=== PATIENT | female | born 1965 | race Caucasian/White ===

== ENCOUNTER 2018-01-29 09:16 | Emergency (ER) | payer SELFPAY ==
[2018-01-29] MEDS ORDERED: LEVALBUTEROL 1.25 MG/3 ML NEB ONE (09:47)
--- NOTE | 2018-01-29 10:15 | RAD REPORT ---
EXAM DESCRIPTION: RAD - Chest Pa And Lat (2 Views) - 01/29/2018 10:00 am CLINICAL HISTORY: COUGH Chest pain. COMPARISON: Chest Pa And Lat (2 Views) dated 05/24/2016; CHEST PA AND LAT 2 VIEW dated 03/30/2015 FINDINGS: The lungs are clear. The heart is normal in size. No displaced fractures. IMPRESSION: No acute or concerning finding suspected.
--- NOTE | 2018-01-29 10:55 | EDPHYS ---
Physician Documentation [facility] Name: Mary Cooley Age: 52 yrs Sex: Female : 1965 Arrival Date: 01/29/2018 Time: 09:19 Bed 6 Private MD: Marlon Luo ED Physician Jeremiah Lawson HPI: 01/29 09:34 This 52 yrs old Female presents to ER via Ambulatory with complaints of Flu rn Symptoms. 09:34 The patient or guardian reports cough, flu symptoms, low-grade fever, myalgias. Onset: rn The symptoms/episode began/occurred 3 week(s) ago. Severity of symptoms: At their worst the symptoms were mild, in the emergency department the symptoms are unchanged. Modifying factors: The symptoms are alleviated by nothing, the symptoms are aggravated by nothing. The patient has experienced similar episodes in the past. The patient has been recently seen by a physician:. Reports cough/congestion for 3 weeks, seen by PCP, finished course of steroids and abx last week, reports still coughing, not really productive, + mild sob, still smokes. + myalgias and fatigue, intermittent fever. . 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 - Social history:: Smoking status: Patient uses tobacco products, smokes one-half pack cigarettes per day. - Ebola Screening: : Patient negative for fever greater than or equal to 101.5 degrees Fahrenheit, and additional compatible Ebola Virus Disease symptoms Patient denies exposure to infectious person Patient denies travel to an Ebola-affected area in the 21 days before illness onset No symptoms or risks identified at this time. - Family history:: not pertinent. - Hospitalizations: : No recent hospitalization is reported. ROS: 09:34 Constitutional: Negative for weight loss Eyes: Negative for injury, pain, redness, and wound care rn, Cardiovascular: Negative for chest pain, palpitations, and edema, Respiratory: Negative for pleuritic chest pain Abdomen/GI: Negative for abdominal pain, nausea, vomiting, diarrhea, and constipation, MS/Extremity: Negative for injury and deformity, Skin: Negative for injury, rash, and discoloration, Neuro: Negative for numbness, tingling, and seizure. Exam: 09:34 Constitutional: This is a well developed, well nourished patient who is awake, alert, rn and in no acute distress, ambulatory to room without difficulty Head/Face: Normocephalic, atraumatic. Eyes: Pupils equal round and reactive to light, extra-ocular motions intact. Periorbital areas with no swelling, redness, or edema. ENT: MMM, no stridor, no exudate or swelling, + non-tender cervical LAD Neck: Supple, full range of motion without nuchal rigidity, or vertebral point tenderness. No Meningismus. Cardiovascular: Regular rate and rhythm, No pulse deficits. Respiratory: + coarse bilateral breath sounds, faint exp wheezing, no retractions, speaking full sentences Abdomen/GI: soft, non-tender Skin: Warm, dry with normal turgor. Normal color with no rashes, no lesions, and no evidence of cellulitis. MS/ Extremity: Pulses equal, no cyanosis. Neurovascular intact. Full, normal range of motion. Equal circumference. Neuro: Awake and alert, GCS 15, oriented to person, place, time, and situation. Cranial nerves II-XII grossly intact. Motor strength 5/5 in all extremities. Sensory grossly intact. Cerebellar exam normal. Normal gait. Vital Signs: 09:32 BP 129 / 105; Pulse 78; Resp 18 S; Temp 98.6(TE); Pulse Ox 96% on R/A; Weight 77.11 kg; iw Height 5 ft. 4 in. (162.56 cm); Pain 0/10; 10:19 BP 128 / 79; Pulse 70; Resp 16; Pulse Ox 95% on R/A; jl7 11:05 BP 115 / 80; Pulse 70; Resp 16 S; Pulse Ox 98% on R/A; jl7 09:32 Body Mass Index 29.18 (77.11 kg, 162.56 cm) iw MDM: 09:25 Patient medically screened. rn 10:53 Differential Diagnosis: Bronchitis Influenza Upper Respiratory Infection Sinusitis rn Pharyngitis Viral Syndrome Pneumonia. Data reviewed: vital signs, nurses notes, lab test result(s), radiologic studies, plain films, and as a result, I will discharge patient. Counseling: I had a detailed discussion with the patient and/or guardian regarding: the historical points, exam findings, and any diagnostic results supporting the discharge/admit diagnosis, lab results, radiology results, the need for outpatient follow up, to return to the emergency department if symptoms worsen or persist or if there are any questions or concerns that arise at home. Special discussion: I discussed with the patient/guardian in detail that at this point there is no indication for admission to the hospital. It is understood, however, that if the symptoms persist or worsen the patient needs to return immediately for re-evaluation. Based on the history and exam findings, there is no indication for further emergent testing or inpatient evaluation. I discussed with the patient/guardian the need to see the primary care provider for further evaluation of the symptoms. 01/29 09:34 Order name: Flu rn 01/29 09:34 Order name: Strep; Complete Time: 10:12 rn 01/29 09:34 Order name: XRAY Chest Pa And Lat (2 Views); Complete Time: 10:20 rn 01/29 09:35 Order name: Influenza Screen (A ; Complete Time: 10:20 EDMS 01/29 10:11 Order name: Throat Culture EDMS Administered Medications: 09:39 Drug: Xopenex 1.25 mg Route: Inhalation; aa5 Disposition: 01/29/18 10:54 Discharged to Home. Impression: Acute sinusitis, Bronchitis, not specified as acute or chronic. - Condition is Stable. - Discharge Instructions: Sinusitis, Adult, Cough, Adult. - Prescriptions for Augmentin 875- 125 mg Oral Tablet - take 1 tablet by ORAL route every 12 hours for 10 days; 20 tablet. Albuterol Sulfate 90 mcg/actuation - inhale 1-2 puff by INHALATION route every 4-6 hours; 1 Inhaler. - Medication Reconciliation Form, Thank You Letter, Antibiotic Education, Prescription Opioid Use form. - Follow up: Private Physician; When: As needed; Reason: Recheck today's complaints, Re-evaluation by your physician. - Problem is an ongoing problem. - Symptoms have improved. Signatures: Dispatcher [employer] EDMS Jewell Hilliard RN RN iw Jeremiah Lawson MD MD rn Calderon, Audri, RN RN aa5 Garcia, Jahala, RN RN jl7 Corrections: (The following items were deleted from the chart) 11:06 10:54 01/29/2018 10:54 Discharged to Home. Impression: Acute sinusitis; Bronchitis, not jl7 specified as acute or chronic. Condition is Stable. Forms are Medication Reconciliation Form, Thank You Letter, Antibiotic Education, Prescription Opioid Use. Follow up: Private Physician; When: As needed; Reason: Recheck today's complaints, Re-evaluation by your physician. Problem is an ongoing problem. Symptoms have improved. rn
--- NOTE | 2018-01-29 10:55 | ER ---
Nurse's Notes [facility] Name: Mary Cooley Age: 52 yrs Sex: Female : 1965 Arrival Date: 01/29/2018 Time: 09:19 Bed 6 Private MD: Marlon Luo Diagnosis: Acute sinusitis;Bronchitis, not specified as acute or chronic Presentation: 01/29 09:30 Presenting complaint: Patient states: cough, congestion, headache, chest tightness, iw intermittent fever X 3 weeks, finished a round of abx and steroids, not getting better. Transition of care: patient was not received from another setting of care. Onset of symptoms was January 13, 2018. Risk Assessment: Do you want to hurt yourself or someone else? Patient reports no desire to harm self or others. Initial Sepsis Screen: Does the patient meet any 2 criteria? No. Patient's initial sepsis screen is negative. Does the patient have a suspected source of infection? No. Patient's initial sepsis screen is negative. Care prior to arrival: None. 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 - Social history:: Smoking status: Patient uses tobacco products, smokes one-half pack cigarettes per day. - Ebola Screening: : Patient negative for fever greater than or equal to 101.5 degrees Fahrenheit, and additional compatible Ebola Virus Disease symptoms Patient denies exposure to infectious person Patient denies travel to an Ebola-affected area in the 21 days before illness onset No symptoms or risks identified at this time. - Family history:: not pertinent. - Hospitalizations: : No recent hospitalization is reported. Screenin:41 Abuse screen: Denies threats or abuse. Denies injuries from another. Nutritional jl7 screening: No deficits noted. Tuberculosis screening: No symptoms or risk factors identified. Fall Risk None identified. Assessment: 09:41 General: Appears in no apparent distress. uncomfortable, Behavior is calm, cooperative, jl7 appropriate for age. Pain: Complains of pain in chest Pain does not radiate. Quality of pain is described as "It's sore when you press on it.". Neuro: Level of Consciousness is awake, alert, obeys commands, Oriented to person, place, time, situation. Cardiovascular: Denies chest pain, lightheadedness, nausea, Heart tones S1 S2 present Patient's skin is warm and dry. Respiratory: Reports cough that is Airway is patent Respiratory effort is even, unlabored, Respiratory pattern is regular, symmetrical, Breath sounds are clear bilaterally. GI: Bowel sounds present X 4 quads. Reports diarrhea, since this morning Patient currently denies nausea, vomiting. : No signs and/or symptoms were reported regarding the genitourinary system. EENT: No signs and/or symptoms were reported regarding the EENT system. Derm: Skin is pink, warm \\T\\ dry. Musculoskeletal: No signs and/or symptoms reported regarding the musculoskeletal system. 10:22 Reassessment: Patient appears in no apparent distress at this time. No changes from jl7 previously documented assessment. Patient and/or family updated on plan of care and expected duration. Pain level reassessed. Patient is alert, oriented x 3, equal unlabored respirations, skin warm/dry/pink. Vital Signs: 09:32 BP 129 / 105; Pulse 78; Resp 18 S; Temp 98.6(TE); Pulse Ox 96% on R/A; Weight 77.11 kg; iw Height 5 ft. 4 in. (162.56 cm); Pain 0/10; 10:19 BP 128 / 79; Pulse 70; Resp 16; Pulse Ox 95% on R/A; jl7 11:05 BP 115 / 80; Pulse 70; Resp 16 S; Pulse Ox 98% on R/A; jl7 09:32 Body Mass Index 29.18 (77.11 kg, 162.56 cm) iw ED Course: 09:19 Patient arrived in ED. sb2 09:20 Marlon Luo DO is Private Physician. sb2 09:24 Jeremiah Lawson MD is Attending Physician. rn 09:32 Triage completed. iw 09:32 Loyda Garcia, MARQUES is Primary Nurse. jl7 09:32 Arm band placed on. iw 09:41 Patient has correct armband on for positive identification. Bed in low position. Call jl7 light in reach. Side rails up X 1. Pulse ox on. NIBP on. 09:58 X-ray completed. Patient tolerated procedure well. Patient moved back from radiology. jb2 09:59 XRAY Chest Pa And Lat (2 Views) In Process Unspecified. EDMS 11:05 No provider procedures requiring assistance completed. Patient did not have IV access jl7 during this emergency room visit. Administered Medications: 09:39 Drug: Xopenex 1.25 mg Route: Inhalation; aa5 Outcome: 10:54 Discharge ordered by . rn 11:05 Discharged to home ambulatory. jl7 11:05 Condition: stable 11:05 Discharge instructions given to patient, family, Instructed on discharge instructions, follow up and referral plans. medication usage, Demonstrated understanding of instructions, follow-up care, medications, Prescriptions given X 2. 11:06 Patient left the ED. jl7 Signatures: Dispatcher [employer] EDKS Giorgi Mooney jb2 Jewell Hilliard, RN Jeremiah Clay MD MD rn Calderon, Audri, RN RN aa5 Loyda Garcia RN RN jl7 Mariama Verduzco sb2
== END 2018-01-29 11:06 | disposition home or self-care (01) ==
LOC: ER 09:16
DX: J40 Bronchitis, not specified as acute or chronic (principal); J01.90 Acute sinusitis, unspecified; F17.210 Nicotine dependence, cigarettes, uncomplicated
CPT/HCPCS: 71046; 87070; 87081; 87804; 99284